=== PATIENT | male | born 1970 | race Caucasian/White ===

== ENCOUNTER → 2017-02-06 | Outpatient (CLI) | payer BC ==
[~2017-02-06] MED LIST: ENTOCORT EC DPS3 MG PO; HYDROCODONE 5MG/5 MG PO; THERAPEUTIC MUL1 TAB PO; VITAMIN D2000 UNI1 PO; ZANTAC DPS150 MG PO
== END | disposition home or self-care (01) ==
LOC: RAD.S 13:19
DX: K50.012 Crohn's disease of small intestine with intestinal obstruction (principal); Z79.899 Other long term (current) drug therapy

== ENCOUNTER 2017-04-25 20:30 | Inpatient (IN) | payer BC ==
[~2017-04-25] VITALS: Ht 193 cm; Wt 105.9 kg
--- NOTE | ~2017-04-25 | CO ---
ADMIT: 04/25/2017 RM/LOC: 626 [facility] MR#: [id number] 2620 [facility] [address] [place] [id number] YESSI LANDAVERDE [address] [place] [address] Consultation SEX: M AGE: 46 : 1970 DATE OF CONSULTATION: 04/28/2017 ATTENDING PHYSICIAN: Jonas Quigley CONSULTING PHYSICIAN: Marlena Hendrxi MD REASON FOR CONSULTATION: Rash. HISTORY OF PRESENT ILLNESS: Mr. Landaverde is a 46-year-old gentleman with a history more significant for Crohn's. He has been experiencing fever and headache with neck stiffness. He is in the hospital for workup. He reports to me that he noticed a rash on his lower legs few days ago. Rash is a little bit sore and tight when he is walking. It has not spread to any other areas. He reports it is a secondary different rash, which developed on his buttocks and hands starting today. This rash is a little bit itchy, but it is not painful. The patient is on Remicade and several new medications in the hospital. Otherwise, he has been on same medications for a while. No history of psoriasis or eczema. PAST MEDICAL HISTORY: As above. He has Crohn disease, partial colectomy. He has been on Remicade for the last couple years, he is also on mercaptopurine. MEDICATIONS: Outpatient medications: 1. Fexofenadine. 2. Pantoprazole. 3. Ranitidine. 4. Remicade. 5. Possibly mercaptopurine at some point in the past. 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 He does not smoke. REVIEW OF SYSTEMS: Positive for headache; positive for neck stiffness; positive for fatigue, fevers, shivering, past chills. No sores in mouth, eyes, or genitalia. PHYSICAL EXAMINATION: HEENT: Normocephalic and atraumatic. NEUROLOGIC: Alert, oriented to person, place, and time. He is actively shivering on exam. INTEGUMENTARY: Patient with pink, dry patches on lower legs. He does have a subcutaneous nodule underlying one of these on his left lateral leg, which is slightly tender to palpation. Follicular based papules on buttocks, few nondescript pink papules on the right hand. ASSESSMENT: 1. Favor erythema nodosum and possible overlying asteatotic eczema. 2. Folliculitis. Treatment; biopsy was done today on his left lower leg. ADMIT: 04/25/2017 RM/LOC: 626 [facility] MR#: [id number] [facility] [address] YESSI LANDAVERDE [address] [place] [address] Consultation SEX: M AGE: 46 : 1970 See below for procedure note. I feel it is likely related to his underlying fevers and infections, but if this persists, may be worth trying to treat him with ibuprofen and consider further workup at that time. 3. The patient denies any treatment for his folliculitis today. PLAN: I will plan to follow up with the patient once the pathology report is back. PROCEDURE NOTE: Punch biopsy of skin. Informed consent from patient was obtained. Area was cleaned on left lower leg, which was to be biopsied. A 1% lidocaine was used to anesthetize the area. A 4-0 punch biopsy was used to remove the specimen. Two Ethilon 5-0 sutures were used to close the wound. A dressing was placed. Patient tolerated this well. He was told sutures were needed to be removed from site in two weeks. Marlena Hendrix MD/ flora JOB #: [id number] CC: Jonas Quigley, Attending Physician Jonas Quigley, Family Physician
--- NOTE | ~2017-04-25 | ER ---
ADMIT: 04/25/2017 RM/LOC: 626 [facility] MR#: [id number] [facility]#: [id number] [address] [id number] YESSI LANDAVERDE [address] [place] [address] Emergency Room Report SEX: M AGE: 46 : 1970 DATE: 04/25/2017 SUBJECTIVE: A 46-year-old gentleman, comes into the Emergency Department with fever, chills, body aches, and abdominal pain, started several hours earlier. Apparently had had a colonoscopy approximately 2 weeks ago for his Crohn's. Was told the colonoscopy was remarkable only for some polyps, which were apparently biopsied. Had been doing well until today. Admitted to the Urgent Care. Not related to work, it did not feel well. They apparently gave him some antibiotics and sent him home, where he called his stating that he was not feeling well and indeed feeling worse than he had been earlier in the day with fever, chills, body aches, and abdominal pain. PAST HISTORY: Crohn's. PHYSICAL EXAMINATION: GENERAL: Reveals a 46-year-old gentleman, in moderate amount of distress. HEENT: Normocephalic and atraumatic. Airway was patent. Pharynx was unremarkable. LUNGS: Clear to auscultation. CARDIOVASCULAR: No murmurs, rubs, or gallops. Regular rate and rhythm. ABDOMEN: Generalized tenderness. No guarding or rebound. EXTREMITIES: Unremarkable. 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 Sepsis workup was initiated, results of which revealed a normal CBC. Normal lactic acid. Normal procalcitonin. Normal electrolytes. Urine had 17 wbc's. Chest x-ray was no acute findings. CT of the abdomen likewise showed no acute findings. The patient was being admitted under observation status for fever and UTI. Brenden Moreland MD/ flora JOB #: [id number] CC: Jonas Quigley MD, Attending Physician Jonas Quigley MD, Family Physician
--- NOTE | 2017-04-30 07:56 | CO ---
ADMIT: 04/25/2017 RM/LOC: 626 [facility] MR#: [id number] [address] [address] YESSI LANDAVERDE [address] [place] [address] Consultation SEX: M AGE: 46 : 1970 DATE OF CONSULTATION: 04/27/2017 ATTENDING PHYSICIAN: Jonas Quigley CONSULTING PHYSICIAN: Andrew Gamez DO REASON FOR CONSULTATION: Infectious disease evaluation. HISTORY OF PRESENT ILLNESS: I am covering for Dr. Pardo. She was asked to see this pleasant, 46-year-old, male patient, who has a history of Crohn disease and immunocompromise secondary to his medication. His story started back about a week or 10 days ago when he underwent a colonoscopy by Dr. Singer in [place] and followup of his Crohn disease. He states that, since that time, he is simply not felt well. He has had abdominal discomforts, some nausea, poor appetite, chills, and some low-grade fever at home. Over the weekend, on Thursday night, he went to the local walk-in day clinic, where they evaluated him and sent him home stating that there was not much they could do for him. He had presented after hours, and they were not able to provide him any antibiotic management. He got to the parking lot when he developed worsening headache, and then, his left arm became somewhat immobile and unusable. He was afraid to drive. He went back into the Medical Clinic and called a friend who came to get him and brought him over to our emergency room. At that time, he was reporting a headache on a scale of 1 to 10 of 9 or 10. He was also feeling generally weak and febrile. He was subsequently admitted, and Dr. Lind and Dr. Quigley have assumed his care and are managing his medical case. They have started him on vancomycin and Zosyn. He has been improving, but again, yesterday afternoon, developed another high-spiking fever. At that point, Dr. Pardo was asked to see the patient this morning. PAST MEDICAL HISTORY: The patient does have a past medical history of rectal abscess, Crohn disease, partial colectomy, colonoscopy approximately 10 days ago, but denies any history of migraine headaches or prior concerns with fevers, chills, sweats, or constitutional symptoms. MEDICATIONS: His medications at presentation include: 1. Colestid, which he states has been prescribed to bind his chronically loose stools. 2. He also states that he has been receiving pain medicines, which historically bind his bowel. He takes: 1. Fexofenadine. 2. Pantoprazole. 3. Ranitidine. 4. Remicade therapy. 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 Does not use tobacco. FAMILY HISTORY: Noncontributory. ADMIT: 04/25/2017 RM/LOC: 626 [facility] MR#: [id number] [address] [place] [id number] YESSI LANDAVERDE [address] [place] [address] Consultation SEX: M AGE: 46 : 1970 REVIEW OF SYSTEMS: Essentially, as outlined above. He denies any current nausea. He does report that the muscles in his neck are somewhat stiff, but he thinks this is from lying in bed. He has a headache, but now, this is a 3 to 4 on a scale of 1 to 10 and is improving since he has been admitted and hydrated. He denies any current liquid stools but states that his stools are chronically semiformed, and he thinks that the pain reliever has been helpful as well as the Colestid therapy. He has not had any bleeding. IMAGING: He did receive a chest x-ray, CT scan of the head and abdomen at presentation; both of which are reviewed. There is no acute finding. PHYSICAL EXAMINATION: GENERAL: He is pleasant. HEAD: He has a headache; 4 on a scale of 1 to 10. NECK: No nuchal rigidity. HEART: Regular. ABDOMEN: Soft without rebound. LUNGS: Clear. EXTREMITIES: Reveal no edema. LABORATORY DATA: His white count is 5, sedimentation rate 49, C-reactive protein 18.3. Blood cultures are negative to date, although he was told at the mid-day clinic that he probably had a urinary tract infection. We are not growing anything on his urine culture at this time. IMPRESSION: Fever, Crohn's, and headache with an altered bowel pattern secondary to medication and underlying Crohn disease. PLAN: He is on Vanco and Zosyn which are good broad-spectrum coverage. Might consider the addition of Flagyl for both his underlying inflammatory bowel disease and coverage for possible C. difficile. I will add this until we have further information available. We will perform a stool C. difficile testing on his next liquid stool. Andrew Gamez DO/ flora JOB #: [id number] CC: Jonas Quigley, Attending Physician Jonas Quigley, Family Physician
--- NOTE | 2017-05-06 07:21 | HP ---
ADMIT: 04/25/2017 RM/LOC: 626 [facility] MR#: [id number] [address] [address] YESSI LANDAVERDE [address] [place] [address] History and Physical SEX: M AGE: 46 : 1970 DATE OF SERVICE: CHIEF COMPLAINT: Abdominal pain and dysuria. HISTORY OF PRESENT ILLNESS: The patient is a 46-year-old male with history of Crohn disease, presents to the ER with 2 days of burning with urination and generalized abdominal pain, found to be febrile to 101. He had been at Urgent Care earlier in the night diagnosed with urinary tract infection and was given antibiotic. However, upon going to the Urgent Care, he started having chest pain radiating to his left arm and was also nauseous, so came to the ER for further evaluation. The patient reports he was in his usual state of health and underwent surveillance colonoscopy on Thursday with biopsies. His symptoms that he is currently having began on Thursday. He denies any change in bowel movements, although he reports having 4 or 5 loose stools a day since having Crohn's. He also reports urinating 20 times a day currently. He does report fevers and chills. Cannot localize his abdominal pain. Currently, denies chest pain or shortness of breath, but does endorse nausea. He has not vomited. Denies any recent sick contacts or travel. No recent changes in medication. He does Remicade injections and takes mercaptopurine for his Crohn disease. In the ER, his labs were unremarkable except his urine did show trace leukocyte esterase as well as trace blood and elevated white blood cells. Procalcitonin was elevated at 0.72. Lactic acid was normal. CBC unremarkable, and CMP remarkable only for alkaline phosphatase of 163, AST of 59, and ALT of 114. Blood cultures were sent. PAST MEDICAL HISTORY: Crohn disease. PAST SURGICAL HISTORY: Rectal abscess removed 10 years ago. FAMILY HISTORY: Noncontributory. MEDICATIONS: 1. Remicade every 8 weeks. 2. Mercaptopurine 100 mg daily. 3. Zantac 150 mg b.i.d. ALLERGIES: MORPHINE. REVIEW OF SYSTEMS: A complete review of systems was obtained and negative except as noted in the HPI. PHYSICAL EXAMINATION: VITAL SIGNS: Temperature 101 degrees Fahrenheit. Vitals otherwise within normal limits. GENERAL: Appears in mild distress. Lying in bed. Alert and oriented x3. HEENT: Pupils are equal, round, and reactive to light and accommodation. Extraocular muscles are intact. TMs are clear bilaterally. Oropharynx is normal. Nose is normal. NECK: No meningeal signs. Thyroid is normal. HEART: Regular rate and rhythm. No murmurs, rubs, or gallops. ADMIT: 04/25/2017 RM/LOC: 626 [facility] MR#: [id number] [address] [place] [id number] [place] [address] History and Physical SEX: M AGE: 46 : 1970 LUNGS: Clear to auscultation bilaterally. No wheezes or crackles. ABDOMEN: Mild tenderness to palpation in flanks bilaterally. No rebound or guarding. EXTREMITIES: No clubbing, cyanosis, or edema. Pulses are 2+. NEUROLOGIC: Grossly intact. No focal deficits. LABORATORY DATA: CBC was unremarkable. CMP showed mild elevation of LFTs. Procalcitonin elevated at 0.72. Lactic acid was normal. Urine showed trace leukocyte esterase, trace blood, and elevated white blood cells. IMAGING: CT abdomen with signs of mild inflammation and a few reactive lymph nodes in the ascending colon per Radiology read. Otherwise, unremarkable. ASSESSMENT: 1. Fever and abdominal pain in a patient on immunosuppression, but not currently neutropenic. 2. History of Crohn disease. 3. Urinary tract infection. PLAN: We will admit to the hospital overnight for observation. Given unclear etiology of pain and mild colitis on x-ray, we will expand antibiotics to Zosyn. Urine with possible UTI, so we will cover for that as well. Continue IV fluids for hydration, Tylenol for fever. We will add on inflammatory markers given mild colitis on x-ray, although I doubt it is an acute Crohn's flare, but could be an early one. All of this could be just due to a virus, but given slightly elevated procalcitonin and fevers in a patient on immunosuppressive, we will err on the conservative side and monitor in the hospital. Recheck labs in the morning and reevaluate. Bobby Marc MD Resident / Bryant Lind MD / flora JOB #: [id number] CC: Jonas Quigley, Attending Physician Jonas Quigley, Family Physician
== END 2017-04-29 09:55 | disposition short-term general hospital (02) | DRG 387 ==
LOC: ER 20:30 → 6PED 23:35
PROVIDERS: ADMIT Family Medicine
PROC: 0HBLXZX Excision of Left Lower Leg Skin, External Approach, Diagnostic (ICD-10-PCS; principal; 2017-04-28)
PROC: 009U3ZX Drainage of Spinal Canal, Percutaneous Approach, Diagnostic (ICD-10-PCS; 2017-04-28)
DX: K50.90 Crohn's disease, unspecified, without complications (principal); L52 Erythema nodosum; K63.5 Polyp of colon; L73.9 Follicular disorder, unspecified